=== PATIENT | male | born 1995 | race Hispanic/Latino ===

== ENCOUNTER 2020-04-15 13:03 | Emergency (ER) | payer SELFPAY ==
[2020-04-15 13:32] LABS: BASOPHILS % (AUTO) 0.7 % (0.0-5.0); EOSINOPHILS % (AUTO) 2.1 % (0.0-8.0); HEMATOCRIT 48.1 % (42-54); LYMPHOCYTES % (AUTO) 21.5 % (21.0-51.0); MEAN CORPUSCULAR HEMOGLOBIN 28.5 pg (27.0-33.0); MEAN CORPUSCULAR HGB CONC 33.9 g/dL (32.0-36.0); MEAN CORPUSCULAR VOLUME 84.2 fL (79-99); MONOCYTES % (AUTO) 6.9 % (3.0-13.0); NEUTROPHILS % (AUTO) 68.6 % (40.0-77.0); PLATELET COUNT (AUTO) 323 K/uL (130-400); RED BLOOD CELL COUNT(AUTO) 5.71 MIL/uL (4.50-6.20); RED CELL DISTRIBUTION WIDTH 12.3 % (11.0-15.5); WHITE BLOOD COUNT (AUTO) 9.2 K/uL (4.8-10.8)
[2020-04-15] MEDS ORDERED: KETOROLAC TROMETHAMINE 30MG/ML ONE (13:32)
[2020-04-15 13:56] LABS: APPEARANCE,URINE Clear (CLEAR); BILIRUBIN,URINE Negative (NEGATIVE); COLOR,URINE Dark Yellow (YELLOW); GLUCOSE, URINE (UA) 500 mg/dL (NEGATIVE); KETONES,URINE Negative (NEGATIVE); LEUKOCYTE ESTERASE ,URINE Negative (NEGATIVE); NITRATE,URINE Negative (NEGATIVE); OCCULT BLOOD,URINE Negative (NEGATIVE); PH,URINE 6.5 (5.0-8.0); PROTEIN,URINE Negative (NEGATIVE)
[2020-04-15 14:02] LABS: CREATININE 0.7 mg/dL (0.5-1.5)
[2020-04-15 14:06] LABS: ALBUMIN 3.5 g/dL (3.5-5.0); BILIRUBIN,TOTAL 0.5 mg/dL (0.2-1.0); TOTAL PROTEIN, SERUM 7.5 g/dL (6.0-8.3)
[2020-04-15] MEDS ORDERED: INSULIN HUMULIN R 100 UNIT/ML 3ML ONE (14:07)
[2020-04-15 14:22] LABS: RBC,URINE 0-1 /HPF (0-1)
[2020-04-15 14:23] LABS: BACTERIA,URINE Rare /HPF (None Seen); SQUAMOUS EPITHELIAL CELL,UR 0-2 /HPF (0-2); WBC,URINE 0-1 /HPF (0-1)
== END 2020-04-15 15:24 | disposition home or self-care (01) ==
LOC: EDH 13:03
DX: M54.5 Low back pain (principal); E11.01 Type 2 diabetes mellitus with hyperosmolarity with coma
CPT/HCPCS: 36415; 74176; 80053; 81001; 82948; 83690; 85025; 96374; 96375; 99284; J1815; J1885

== ENCOUNTER 2021-09-21 18:05 | Inpatient (IN) | payer SELFPAY ==
[~2021-09-21] VITALS: Ht 165.1 cm; Wt 120.1 kg
[2021-09-21] MEDS ORDERED: ONDANSETRON 4MG INJ IVP ONE (18:30)
[2021-09-21] MEDS ORDERED: MORPHINE 2 MG SYG IVP ONE (18:30)
[2021-09-21 18:50] LABS: BASOPHILS % (AUTO) 0.7 % (0.0-5.0); EOSINOPHILS % (AUTO) 1.4 % (0.0-8.0); HEMATOCRIT 46.7 % (42-54); LYMPHOCYTES % (AUTO) 13.5 % (21.0-51.0); MEAN CORPUSCULAR HEMOGLOBIN 28.7 pg (27.0-33.0); MEAN CORPUSCULAR HGB CONC 34.7 g/dL (32.0-36.0); MEAN CORPUSCULAR VOLUME 82.8 fL (79-99); MONOCYTES % (AUTO) 7.6 % (3.0-13.0); NEUTROPHILS % (AUTO) 76.5 % (40.0-77.0); PLATELET COUNT (AUTO) 330 K/uL (130-400); RED BLOOD CELL COUNT(AUTO) 5.64 MIL/uL (4.50-6.20); WHITE BLOOD COUNT (AUTO) 15.2 K/uL (4.8-10.8)
[2021-09-21] MEDS ORDERED: INSULIN HUMULIN R 100 UNIT/ML 3ML SQ ONE (19:00)
[2021-09-21] MEDS ORDERED: 0.9%NACL 1000ML 1,000 ML IV ONE (19:00)
[2021-09-21 19:02] LABS: APPEARANCE,URINE Clear (CLEAR); BILIRUBIN,URINE Negative (NEGATIVE); COLOR,URINE Yellow (YELLOW); GLUCOSE, URINE (UA) >=1000 mg/dL (NEGATIVE); KETONES,URINE Negative (NEGATIVE); LEUKOCYTE ESTERASE ,URINE Negative (NEGATIVE); NITRATE,URINE Negative (NEGATIVE); OCCULT BLOOD,URINE Negative (NEGATIVE); PH,URINE 5.5 (5.0-8.0); PROTEIN,URINE Negative (NEGATIVE)
[2021-09-21 19:08] LABS: CREATININE 0.8 mg/dL (0.5-1.5); POTASSIUM 3.8 mmol/L (3.5-5.1)
[2021-09-21 19:11] LABS: BACTERIA,URINE Rare /HPF (None Seen); MUCUS,URINE Few LPF (None Seen); SQUAMOUS EPITHELIAL CELL,UR 0-2 /HPF (0-2); YEAST,URINE BUDDING Rare /HPF (None Seen)
[2021-09-21 19:13] LABS: ALBUMIN 3.8 g/dL (3.5-5.0); BILIRUBIN,TOTAL 0.7 mg/dL (0.2-1.0); TOTAL PROTEIN, SERUM 8.1 g/dL (6.0-8.3)
[2021-09-21] MEDS: CLINDAMYCIN IVPB 600MG/50ML 50 ML IV SCH (19:35)
[2021-09-21] MEDS ORDERED: ONDANSETRON 4MG INJ ONE (19:37)
[2021-09-21] MEDS ORDERED: MORPHINE 2 MG SYG ONE (19:38)
[2021-09-21] MEDS ORDERED: NITROGLYCERIN 0.4 MG SL TAB SL PRN (20:30)
[2021-09-21] MEDS ORDERED: ONDANSETRON 4MG INJ IV PRN (20:30)
[2021-09-21] MEDS ORDERED: ACETAMINOPHEN 325 MG TAB PO PRN ×2 (20:30)
[2021-09-21] MEDS ORDERED: MEPERIDINE-PF 25 MG/ML SYG IM PRN (21:00)
[2021-09-21] MEDS: INSULIN HUMULIN R 100 UNIT/ML 3ML SQ SCH (21:19)
[2021-09-21] MEDS: LACTATED RINGERS 1000ML 1,000 ML IV SCH (21:19)
[2021-09-21] MEDS: FAMOTIDINE 20MG TAB PO SCH (21:19)
[2021-09-21 21:28] LABS: AMPHET/METH SCREEN,URINE NEGATIVE (NEGATIVE); BARBITURATE SCREEN, URINE NEGATIVE (NEGATIVE); BENZODIAZEPINES SCREEN,URINE NEGATIVE (NEGATIVE); CANNABINOID SCREEN,URINE NEGATIVE (NEGATIVE); COCAINE SCREEN,URINE NEGATIVE (NEGATIVE); OPIATE SCREEN,URINE NEGATIVE (NEGATIVE); PHENCYCLIDINE SCREEN,URINE NEGATIVE (NEGATIVE)
[2021-09-22] VITALS (26 sets, daily range): BP systolic 104–137; BP diastolic 54–91
[2021-09-22] MEDS: CLINDAMYCIN IVPB 600MG/50ML 50 ML IV SCH ×3 (03:12→17:03)
[2021-09-22] MEDS: KETOROLAC 15MG/ML VIAL (15MG/ML) IM PRN ×2 (05:03→23:50)
[2021-09-22] MEDS: INSULIN HUMULIN R 100 UNIT/ML 3ML SQ SCH ×7 (06:19→20:46)
[2021-09-22 07:00] LABS: BASOPHILS % (AUTO) 0.5 % (0.0-5.0); EOSINOPHILS % (AUTO) 2.5 % (0.0-8.0); HEMATOCRIT 42.7 % (42-54); LYMPHOCYTES % (AUTO) 17.1 % (21.0-51.0); MEAN CORPUSCULAR HEMOGLOBIN 29.1 pg (27.0-33.0); MEAN CORPUSCULAR VOLUME 85.6 fL (79-99); MONOCYTES % (AUTO) 10.1 % (3.0-13.0); NEUTROPHILS % (AUTO) 69.4 % (40.0-77.0); PLATELET COUNT (AUTO) 280 K/uL (130-400); RED BLOOD CELL COUNT(AUTO) 4.99 MIL/uL (4.50-6.20); RED CELL DISTRIBUTION WIDTH 12.2 % (11.0-15.5); WHITE BLOOD COUNT (AUTO) 13.4 K/uL (4.8-10.8)
[2021-09-22 07:09] LABS: CREATININE 0.8 mg/dL (0.5-1.5); POTASSIUM 3.6 mmol/L (3.5-5.1)
[2021-09-22] MEDS: FAMOTIDINE 20MG TAB PO SCH ×2 (09:00→20:41)
[2021-09-22] MEDS: LACTATED RINGERS 1000ML 1,000 ML IV SCH (09:18)
[2021-09-22 09:21] LABS: HEMOGLOBIN A1C 11.1 % (4.0-6.0)
[2021-09-22] MEDS ORDERED: METOCLOPRAMIDE 10 MG/2 ML VIAL IVP SCH (09:30)
[2021-09-22] MEDS ORDERED: LIDOCAINE PF 100MG/5ML (2%) SYRINGE 5ML ONE (14:17)
[2021-09-22] MEDS ORDERED: MIDAZOLAM HCL 1 MG/ML 2ML VIAL ONE (14:17)
[2021-09-22] MEDS ORDERED: SUCCINYLCHOLINE 200MG/10ML SYR ONE (14:17)
[2021-09-22] MEDS ORDERED: ROCURONIUM 10MG/1ML SYR 10 MG/ML ML ONE (14:18)
[2021-09-22] MEDS ORDERED: PROPOFOL 10 MG/ML 20ML VIAL IV ONE (14:18)
[2021-09-22] MEDS ORDERED: BUPIVACAINE/PF 0.25% 30ML VIAL IJ ONE (14:28)
[2021-09-22] MEDS ORDERED: FENTANYL CITRATE PF 50 MCG/1 ML 2ML VIAL ONE ×2 (14:31→14:40)
[2021-09-22] MEDS ORDERED: KETOROLAC 30MG VIAL (30MG/ML) ONE (15:10)
[2021-09-23 00:03] VITALS: BP 127/61
[2021-09-23] MEDS: CLINDAMYCIN IVPB 600MG/50ML 50 ML IV SCH ×2 (02:23→09:00)
[2021-09-23 04:05] VITALS: BP 115/55
[2021-09-23 04:26] LABS: BASOPHILS % (AUTO) 0.7 % (0.0-5.0); EOSINOPHILS % (AUTO) 2.2 % (0.0-8.0); HEMATOCRIT 41.9 % (42-54); LYMPHOCYTES % (AUTO) 16.7 % (21.0-51.0); MEAN CORPUSCULAR HEMOGLOBIN 29.2 pg (27.0-33.0); MEAN CORPUSCULAR HGB CONC 33.9 g/dL (32.0-36.0); MONOCYTES % (AUTO) 10.5 % (3.0-13.0); NEUTROPHILS % (AUTO) 69.5 % (40.0-77.0); PLATELET COUNT (AUTO) 305 K/uL (130-400); RED BLOOD CELL COUNT(AUTO) 4.87 MIL/uL (4.50-6.20); WHITE BLOOD COUNT (AUTO) 12.2 K/uL (4.8-10.8)
[2021-09-23 04:37] LABS: CREATININE 0.7 mg/dL (0.5-1.5); POTASSIUM 3.3 mmol/L (3.5-5.1)
[2021-09-23] MEDS: INSULIN HUMULIN R 100 UNIT/ML 3ML SQ SCH ×5 (05:57→16:23)
[2021-09-23] MEDS: LACTATED RINGERS 1000ML 1,000 ML IV SCH (06:14)
[2021-09-23 08:00] VITALS: BP 127/79
[2021-09-23] MEDS: FAMOTIDINE 20MG TAB PO SCH (09:00)
[2021-09-23] MEDS ORDERED: KCL 20 MEQ ERTAB PO ONE (09:06)
[2021-09-23] MEDS ORDERED: CLIN-141 PO (09:10)
[2021-09-23] MEDS ORDERED: METF-444 PO (09:10)
[2021-09-23] MEDS ORDERED: KCL 20 MEQ ERTAB PO SCH (09:30)
[2021-09-23 12:00] VITALS: BP 137/79
[2021-09-23 16:00] VITALS: BP 134/80
== END 2021-09-23 17:45 | disposition home or self-care (01) | DRG 603 ==
LOC: EDH 18:05 → OBSVTOIN 18:06 → EDHIP 18:06 → 3AH 09-22 03:18
PROVIDERS: ADMIT Internal Medicine; ATTEND Internal Medicine
PROC: 0X950ZZ Drainage of Left Axilla, Open Approach (ICD-10-PCS; principal; 2021-09-22 14:32)
DX: L02.412 Cutaneous abscess of left axilla (principal); Z68.41 Body mass index [BMI] 40.0-44.9, adult; E11.9 Type 2 diabetes mellitus without complications; E66.01 Morbid (severe) obesity due to excess calories; Z20.822 Contact with and (suspected) exposure to COVID-19; L03.112 Cellulitis of left axilla
CPT/HCPCS: 36415; 71250; 80048; 80053; 80305; 81001; 82948; 83036; 83605; 84132; 85025; 86140; 87040; 87070; 87076; 87635; A6266; G0378; J0330; J1815; J1885; J2001; J2175; J2250; J2405; J2704; J2765; J3010; J3490; J7030; J7120

== ENCOUNTER → 2021-09-24 | Outpatient (CLI) | payer SELFPAY ==
[~2021-09-24] MED LIST: CLIN-141 PO; METF-444 PO
== END | disposition home or self-care (01) ==
LOC: WHH 13:00
PROVIDERS: ATTEND Family Medicine
DX: T81.89XA Other complications of procedures, not elsewhere classified, initial encounter (principal); E11.622 Type 2 diabetes mellitus with other skin ulcer; L98.492 Non-pressure chronic ulcer of skin of other sites with fat layer exposed; L02.412 Cutaneous abscess of left axilla; E66.01 Morbid (severe) obesity due to excess calories; Z98.890 Other specified postprocedural states; Z68.39 Body mass index [BMI] 39.0-39.9, adult; Y83.8 Other surgical procedures as the cause of abnormal reaction of the patient, or of later complication, without mention of misadventure at the time of the procedure; Y92.238 Other place in hospital as the place of occurrence of the external cause
CPT/HCPCS: 99211; A4450

== ENCOUNTER 2022-02-01 02:58 | Emergency (ER) | payer OTHER ==
[~2022-02-01] VITALS: Ht 165.1 cm; Wt 122.0 kg
[2022-02-01 03:13] VITALS: BP 145/82
[2022-02-01] MEDS ORDERED: CEPH500B PO (03:21)
[2022-02-01] MEDS ORDERED: CEPHALEXIN 500 MG CAPSULE ONE (03:23)
[2022-02-01] MEDS ORDERED: CEPHALEXIN 500 MG CAPSULE PO ONE (03:30)
== END 2022-02-01 03:31 | disposition home or self-care (01) ==
LOC: EDH 02:58
DX: S31.21XA Laceration without foreign body of penis, initial encounter (principal); E11.9 Type 2 diabetes mellitus without complications; Z79.84 Long term (current) use of oral hypoglycemic drugs; W45.8XXA Other foreign body or object entering through skin, initial encounter; Y93.89 Activity, other specified; Y92.89 Other specified places as the place of occurrence of the external cause; Y99.8 Other external cause status